=== PATIENT | male | born 1990 ===

== ENCOUNTER 2023-08-10 20:37 | Inpatient (IN) | payer SELFPAY ==
[~2023-08-10] VITALS: Ht 170.2 cm; Wt 94.0 kg
[2023-08-10] MEDS ORDERED: HYDROcodone-ACET 10/325MG TAB PO ONE (21:15)
[2023-08-10] MEDS ORDERED: ONDANSETRON ODT 4 MG TAB PO ONE (21:15)
[2023-08-10 21:40] LABS: Basophils # (auto) 0 10 ^3/uL (0-0.2); Basophils % (auto) 0.3 % (0.0-2.0); Eosinophils # (auto) 0.1 10 ^3/uL (0-0.8); Eosinophils % (auto) 0.9 % (0.0-7.0); Hematocrit 43.6 % (41.0-53.0); Lymphocytes # (auto) 2.4 10 ^3/uL (0.4-5.4); Lymphocytes % (auto) 18.7 % (10.0-50.0); Mean Corpuscular Hemoglobin 30.9 pg (28.0-32.0); Mean Corpuscular Hgb Conc. 34.4 g/dL (32.0-36.0); Mean Corpuscular Volume 89.8 fL (80.0-100.0); Monocytes # (auto) 1.1 10 ^3/uL (0-1.3); Monocytes % (auto) 8.4 % (0.0-12.0); Neutrophils # (auto) 9.2 10 ^3/uL (1.6-8.6); Neutrophils % (auto) 71.7 % (37.0-80.0); Red Blood Cells 4.85 10^6/uL (4.5-5.90); Red Cell Distribution Width 12.9 % (11.8-14.3); White Blood Cell 12.8 10^3/uL (4.4-10.8)
[2023-08-10 21:54] LABS: Alanine Aminotransferase 27 U/L (7-40); Albumin 4.9 g/dL (3.2-4.8); Alkaline Phosphatase 92 U/L (46-116); Anion Gap 8 (5-15); Aspartate Aminotransferase 10 U/L (13-40); BUN/Creatinine Ratio 9.2 (10.0-20.0); Bilirubin, Total 0.5 mg/dL (0.2-1.0); Blood Urea Nitrogen 11 mg/dL (9-23); Calcium 9.6 mg/dL (8.7-10.4); Carbon Dioxide 27 mmol/L (20-30); Chloride 102 mmol/L (98-107); Glucose 88 mg/dL (74-106); Lipase 52 U/L (12-53); Potassium 4.1 mmol/L (3.5-5.1); Sodium 137 mmol/L (136-145); Total Protein 8.1 g/dL (5.7-8.2)
[2023-08-10] MEDS ORDERED: ONDANSETRON HCL 4 MG/2 ML VIAL IV ONE (23:30)
[2023-08-10] MEDS ORDERED: HYDROmorphone HCL 2 MG/ML VL/or syr IV ONE (23:30)
[2023-08-10] MEDS ORDERED: PIPERACILLIN-TAZOB 3.375GM 100 ML IV ONE (23:30)
[2023-08-10] MEDS ORDERED: metroNIDAZOLE 500MG/100ML 100 ML IV ONE (23:30)
[2023-08-10] MEDS ORDERED: LACTATED RINGER'S 200 ML IV ONE (23:30)
[2023-08-11] MEDS ORDERED: fentaNYL CITRATE 100 MCG/2 ML VL IV ONE (00:45)
[2023-08-11] MEDS ORDERED: LACTATED RINGER'S 2,850 ML IV ONE ×2 (01:00)
[2023-08-11 01:10] VITALS: PULSE 88; RESP 22; O2SAT 96
[2023-08-11] MEDS ORDERED: HYDROcodone-ACET 5/325MG TAB PO PRN (02:00)
[2023-08-11] MEDS ORDERED: ONDANSETRON HCL 4 MG/2 ML VIAL IV PRN (02:00)
[2023-08-11] MEDS ORDERED: ACETAMINOPHEN 325 MG TAB PO PRN (02:00)
[2023-08-11] MEDS: D5W/SOD CHLO 0.9% 1,000 ML IV SCH ×2 (02:41→15:33)
[2023-08-11] MEDS: metroNIDAZOLE 500MG/100ML 100 ML IV SCH ×3 (06:00→22:20)
[2023-08-11] MEDS: PIPERACILLIN-TAZOB 3.375GM 100 ML IV SCH ×3 (06:00→22:20)
[2023-08-11 06:12] LABS: Alanine Aminotransferase 22 U/L (7-40); Albumin 4.2 g/dL (3.2-4.8); Alkaline Phosphatase 77 U/L (46-116); Anion Gap 4 (5-15); Aspartate Aminotransferase 15 U/L (13-40); BUN/Creatinine Ratio 7.4 (10.0-20.0); Bilirubin, Total 0.9 mg/dL (0.2-1.0); Blood Urea Nitrogen 9 mg/dL (9-23); Calcium 9.3 mg/dL (8.5-10.1); Carbon Dioxide 29 mmol/L (20-30); Chloride 105 mmol/L (98-107); Glucose 94 mg/dL (74-106); Potassium 4.5 mmol/L (3.5-5.1); Sodium 138 mmol/L (136-145); Total Protein 6.9 g/dL (5.7-8.2)
[2023-08-11 06:16] LABS: Basophils # (auto) 0 10 ^3/uL (0-0.2); Basophils % (auto) 0.3 % (0.0-2.0); Eosinophils # (auto) 0.1 10 ^3/uL (0-0.8); Eosinophils % (auto) 0.8 % (0.0-7.0); Hematocrit 41.3 % (41.0-53.0); Lymphocytes # (auto) 2.3 10 ^3/uL (0.4-5.4); Lymphocytes % (auto) 20.3 % (10.0-50.0); Mean Corpuscular Hemoglobin 30.3 pg (28.0-32.0); Mean Corpuscular Hgb Conc. 33.8 g/dL (32.0-36.0); Mean Corpuscular Volume 89.7 fL (80.0-100.0); Monocytes # (auto) 1.2 10 ^3/uL (0-1.3); Monocytes % (auto) 10.7 % (0.0-12.0); Neutrophils # (auto) 7.6 10 ^3/uL (1.6-8.6); Neutrophils % (auto) 67.9 % (37.0-80.0); Red Cell Distribution Width 12.7 % (11.8-14.3); White Blood Cell 11.2 10^3/uL (4.4-10.8)
[2023-08-11 09:09] VITALS: PULSE 72; RESP 18; O2SAT 97
[2023-08-11 14:40] VITALS: BP 163/69; PULSE 84; RESP 15; TEMP 98.5; O2SAT 97
[2023-08-11 14:53] VITALS: PULSE 82; RESP 18; O2SAT 90
[2023-08-11] MEDS: HYDROmorphone HCL 2 MG/ML VL/or syr IV PRN ×2 (15:58→20:39)
[2023-08-11 16:00] VITALS: BP 103/67; PULSE 83; PULSE 84; RESP 25; TEMP 98.9; O2SAT 98
[2023-08-11] MEDS ORDERED: NORPTMEDS CO (16:24)
[2023-08-11 20:00] VITALS: BP 93/56; PULSE 69; PULSE 74; RESP 18; RESP 20; TEMP 97.9; O2SAT 96; O2SAT 98
[2023-08-12] VITALS (12 sets, daily range): BP systolic 93–113; BP diastolic 43–70; PULSE 67–90; RESP 14–26; TEMP 97.6–98.4; O2SAT 92–95
[2023-08-12] MEDS: D5W/SOD CHLO 0.9% 1,000 ML IV SCH ×2 (03:43→18:05)
[2023-08-12 05:15] LABS: Basophils # (auto) 0.1 10 ^3/uL (0-0.2); Basophils % (auto) 0.5 % (0.0-2.0); Eosinophils # (auto) 0.1 10 ^3/uL (0-0.8); Eosinophils % (auto) 0.5 % (0.0-7.0); Hematocrit 42.9 % (41.0-53.0); Hemoglobin 14.4 g/dL (13.5-17.5); Lymphocytes % (auto) 7.9 % (10.0-50.0); Mean Corpuscular Hemoglobin 30.5 pg (28.0-32.0); Mean Corpuscular Hgb Conc. 33.6 g/dL (32.0-36.0); Mean Corpuscular Volume 90.7 fL (80.0-100.0); Monocytes % (auto) 7.6 % (0.0-12.0); Neutrophils # (auto) 10.7 10 ^3/uL (1.6-8.6); Neutrophils % (auto) 83.5 % (37.0-80.0); Red Blood Cells 4.73 10^6/uL (4.5-5.90); Red Cell Distribution Width 12.8 % (11.8-14.3); White Blood Cell 12.8 10^3/uL (4.4-10.8)
[2023-08-12 05:30] LABS: Alanine Aminotransferase 21 U/L (7-40); Albumin 4.4 g/dL (3.2-4.8); Alkaline Phosphatase 90 U/L (46-116); Anion Gap 7 (5-15); Aspartate Aminotransferase 12 U/L (13-40); BUN/Creatinine Ratio 6.7 (10.0-20.0); Blood Urea Nitrogen 8 mg/dL (9-23); Calcium 9.2 mg/dL (8.7-10.4); Carbon Dioxide 26 mmol/L (20-30); Chloride 102 mmol/L (98-107); Glucose 95 mg/dL (74-106); Potassium 3.9 mmol/L (3.5-5.1); Sodium 135 mmol/L (136-145)
[2023-08-12 05:31] LABS: Bilirubin, Total 0.9 mg/dL (0.2-1.0); Total Protein 7.3 g/dL (5.7-8.2)
[2023-08-12] MEDS: metroNIDAZOLE 500MG/100ML 100 ML IV SCH ×3 (05:51→22:18)
[2023-08-12] MEDS: PIPERACILLIN-TAZOB 3.375GM 100 ML IV SCH ×3 (05:51→22:18)
[2023-08-12] MEDS ORDERED: TPN PER PHARMACY 0 ML IV SCH (09:30)
[2023-08-12 09:32] LABS: Phosphorus 3.8 mg/dL (2.4-5.1)
[2023-08-12 10:59] LABS: INR 1.15 (0.9-1.15)
[2023-08-12] MEDS ORDERED: LIDOCAINE 1% (LOCAL ANESTH.) PF 5ml SDV ID ONE (16:15)
[2023-08-12] MEDS ORDERED: DEXTROSE (50%) 50ML SYRG IV SCH (20:00)
[2023-08-12] MEDS ORDERED: TPN PER PHARMACY IV NR ×9 (20:00)
[2023-08-12] MEDS: HYDROmorphone HCL 2 MG/ML VL/or syr IV PRN (21:12)
[2023-08-12] MEDS: SODIUM CHLOR 0.9% PF (SALINE LOCK) 10ML VIAL/SYR IV SCH (22:18)
[2023-08-13] VITALS (20 sets, daily range): BP systolic 95–124; BP diastolic 57–79; PULSE 57–102; RESP 13–27; TEMP 97.8–98.4; O2SAT 94–100
[2023-08-13] MEDS: ACCU-CHEK COMFORT CURVE STRIP VI SCH ×4 (00:16→17:24)
[2023-08-13] MEDS ORDERED: diphenhdrAMINE HCL 50 MG/1 ML VL IV ONE (02:45)
[2023-08-13] MEDS: metroNIDAZOLE 500MG/100ML 100 ML IV SCH ×3 (05:34→21:16)
[2023-08-13] MEDS: PIPERACILLIN-TAZOB 3.375GM 100 ML IV SCH ×3 (05:34→22:25)
[2023-08-13 05:44] LABS: BUN/Creatinine Ratio 8.1 (10.0-20.0); Blood Urea Nitrogen 9 mg/dL (9-23); Calcium 9.4 mg/dL (8.5-10.1); Chloride 103 mmol/L (98-107); Glucose 111 mg/dL (74-106); Potassium 3.7 mmol/L (3.5-5.1); Sodium 136 mmol/L (136-145)
[2023-08-13] MEDS: InsuLIN REG 1unit/0.01ml Soln (100units/ml) SC SCH ×4 (06:00→17:24)
[2023-08-13 06:54] LABS: Anion Gap 8 (5-15); Carbon Dioxide 25 mmol/L (20-30)
[2023-08-13] MEDS: D5W/SOD CHLO 0.9% 1,000 ML IV SCH (07:20)
[2023-08-13 07:30] LABS: Alanine Aminotransferase 17 U/L (7-40); Albumin 4.6 g/dL (3.2-4.8); Alkaline Phosphatase 85 U/L (46-116); Aspartate Aminotransferase 12 U/L (13-40); Magnesium 2.1 mg/dL (1.6-2.6); Phosphorus 3.1 mg/dL (2.4-5.1)
[2023-08-13 07:31] LABS: Bilirubin, Total 0.6 mg/dL (0.2-1.0); Total Protein 7.6 g/dL (5.7-8.2)
[2023-08-13] MEDS: SODIUM CHLOR 0.9% PF (SALINE LOCK) 10ML VIAL/SYR IV SCH ×2 (10:00→22:34)
[2023-08-13] MEDS: TPN PER PHARMACY IV NR ×8 (21:13)
[2023-08-13] MEDS: HYDROmorphone HCL 2 MG/ML VL/or syr IV PRN (21:15)
[2023-08-14] VITALS (10 sets, daily range): BP systolic 97–108; BP diastolic 58–67; PULSE 54–79; RESP 11–23; TEMP 97.4–98.3; O2SAT 93–98
[2023-08-14 05:07] LABS: Basophils # (auto) 0.1 10 ^3/uL (0-0.2); Basophils % (auto) 0.7 % (0.0-2.0); Eosinophils # (auto) 0.1 10 ^3/uL (0-0.8); Eosinophils % (auto) 1.5 % (0.0-7.0); Hematocrit 43.6 % (41.0-53.0); Hemoglobin 14.8 g/dL (13.5-17.5); Lymphocytes # (auto) 1.7 10 ^3/uL (0.4-5.4); Lymphocytes % (auto) 21.2 % (10.0-50.0); Mean Corpuscular Hemoglobin 30.5 pg (28.0-32.0); Mean Corpuscular Volume 89.9 fL (80.0-100.0); Monocytes # (auto) 0.6 10 ^3/uL (0-1.3); Monocytes % (auto) 7.7 % (0.0-12.0); Neutrophils # (auto) 5.5 10 ^3/uL (1.6-8.6); Neutrophils % (auto) 68.9 % (37.0-80.0); Nucleated Red Blood Cells % 0.1 %; Red Blood Cells 4.86 10^6/uL (4.5-5.90); Red Cell Distribution Width 12.9 % (11.8-14.3)
[2023-08-14 05:24] LABS: Alanine Aminotransferase 16 U/L (7-40); Albumin 4.5 g/dL (3.2-4.8); Alkaline Phosphatase 75 U/L (46-116); Anion Gap 6 (5-15); Aspartate Aminotransferase 11 U/L (13-40); BUN/Creatinine Ratio 8.5 (10.0-20.0); Blood Urea Nitrogen 10 mg/dL (9-23); Calcium 9.4 mg/dL (8.7-10.4); Carbon Dioxide 27 mmol/L (20-30); Chloride 105 mmol/L (98-107); Glucose 98 mg/dL (74-106); Magnesium 2.1 mg/dL (1.6-2.6); Potassium 4.5 mmol/L (3.5-5.1); Sodium 138 mmol/L (136-145)
[2023-08-14 05:25] LABS: Bilirubin, Total 0.4 mg/dL (0.2-1.0); Phosphorus 3.7 mg/dL (2.4-5.1); Total Protein 7.6 g/dL (5.7-8.2)
[2023-08-14] MEDS: InsuLIN REG 1unit/0.01ml Soln (100units/ml) SC SCH ×4 (06:00→18:00)
[2023-08-14] MEDS: ACCU-CHEK COMFORT CURVE STRIP VI SCH ×4 (06:00→18:00)
[2023-08-14] MEDS: metroNIDAZOLE 500MG/100ML 100 ML IV SCH ×3 (08:02→22:15)
[2023-08-14] MEDS: PIPERACILLIN-TAZOB 3.375GM 100 ML IV SCH ×3 (08:02→22:15)
[2023-08-14] MEDS: D5W/SOD CHLO 0.9% 1,000 ML IV SCH ×2 (10:48→23:20)
[2023-08-14] MEDS: SODIUM CHLOR 0.9% PF (SALINE LOCK) 10ML VIAL/SYR IV SCH ×2 (10:49→22:15)
[2023-08-14] MEDS: HYDROmorphone HCL 2 MG/ML VL/or syr IV PRN ×2 (11:50→18:06)
[2023-08-14] MEDS: TPN PER PHARMACY IV NR ×16 (20:07→20:08)
[2023-08-15] VITALS (9 sets, daily range): BP systolic 97–130; BP diastolic 51–68; PULSE 57–76; RESP 16–22; TEMP 97.3–98.2; O2SAT 94–100
[2023-08-15] MEDS: ACCU-CHEK COMFORT CURVE STRIP VI SCH ×4 (00:49→18:18)
[2023-08-15] MEDS: metroNIDAZOLE 500MG/100ML 100 ML IV SCH (05:07)
[2023-08-15] MEDS: InsuLIN REG 1unit/0.01ml Soln (100units/ml) SC SCH ×4 (05:17→18:00)
[2023-08-15] MEDS: PIPERACILLIN-TAZOB 3.375GM 100 ML IV SCH ×3 (06:11→21:20)
[2023-08-15 06:38] LABS: Alanine Aminotransferase 15 U/L (7-40); Albumin 4.5 g/dL (3.2-4.8); Alkaline Phosphatase 68 U/L (46-116); Anion Gap 4 (5-15); Aspartate Aminotransferase 13 U/L (13-40); BUN/Creatinine Ratio 9.1 (10.0-20.0); Blood Urea Nitrogen 11 mg/dL (9-23); Calcium 9.3 mg/dL (8.7-10.4); Carbon Dioxide 29 mmol/L (20-30); Chloride 106 mmol/L (98-107); Glucose 88 mg/dL (74-106); Magnesium 1.9 mg/dL (1.6-2.6); Potassium 4.5 mmol/L (3.5-5.1); Sodium 139 mmol/L (136-145)
[2023-08-15 06:39] LABS: Bilirubin, Total 0.3 mg/dL (0.2-1.0); Phosphorus 4.2 mg/dL (2.4-5.1); Total Protein 7.5 g/dL (5.7-8.2)
[2023-08-15 07:02] LABS: Basophils # (auto) 0 10 ^3/uL (0-0.2); Basophils % (auto) 0.6 % (0.0-2.0); Eosinophils # (auto) 0.2 10 ^3/uL (0-0.8); Eosinophils % (auto) 2.1 % (0.0-7.0); Hematocrit 43.9 % (41.0-53.0); Hemoglobin 14.9 g/dL (13.5-17.5); Lymphocytes # (auto) 2.1 10 ^3/uL (0.4-5.4); Mean Corpuscular Hemoglobin 30.7 pg (28.0-32.0); Mean Corpuscular Hgb Conc. 34.1 g/dL (32.0-36.0); Mean Corpuscular Volume 90.3 fL (80.0-100.0); Monocytes # (auto) 0.7 10 ^3/uL (0-1.3); Monocytes % (auto) 8.2 % (0.0-12.0); Neutrophils # (auto) 5.8 10 ^3/uL (1.6-8.6); Neutrophils % (auto) 65.1 % (37.0-80.0); Nucleated Red Blood Cells % 0.3 %; Red Blood Cells 4.86 10^6/uL (4.5-5.90); Red Cell Distribution Width 12.7 % (11.8-14.3); White Blood Cell 8.8 10^3/uL (4.4-10.8)
[2023-08-15] MEDS ORDERED: OMNIPAQUE 12mg/ml 500ml ORAL SOLUTION PO ONE (08:02)
[2023-08-15] MEDS ORDERED: IOHEXOL 300 MG/ML 100ML BOTTLE IJ ONE (11:11)
[2023-08-15] MEDS: D5W/SOD CHLO 0.9% 1,000 ML IV SCH ×3 (12:40→17:58)
[2023-08-15] MEDS: SODIUM CHLOR 0.9% PF (SALINE LOCK) 10ML VIAL/SYR IV SCH ×2 (14:23→21:21)
[2023-08-15] MEDS: TPN PER PHARMACY IV NR ×8 (19:55)
[2023-08-15] MEDS ORDERED: TPN PER PHARMACY IV NR ×8 (20:00)
[2023-08-16] VITALS (7 sets, daily range): BP systolic 100–123; BP diastolic 7–86; PULSE 6–105; RESP 18–22; TEMP 97.6–98.1; O2SAT 96–98
[2023-08-16] MEDS: D5W/SOD CHLO 0.9% 1,000 ML IV SCH ×2 (02:00→14:19)
[2023-08-16] MEDS: PIPERACILLIN-TAZOB 3.375GM 100 ML IV SCH ×2 (05:22→14:19)
[2023-08-16] MEDS: InsuLIN REG 1unit/0.01ml Soln (100units/ml) SC SCH ×5 (05:22→23:19)
[2023-08-16] MEDS: ACCU-CHEK COMFORT CURVE STRIP VI SCH ×5 (05:22→23:19)
[2023-08-16 06:32] LABS: Basophils # (auto) 0 10 ^3/uL (0-0.2); Basophils % (auto) 0.5 % (0.0-2.0); Eosinophils # (auto) 0.3 10 ^3/uL (0-0.8); Eosinophils % (auto) 2.8 % (0.0-7.0); Hematocrit 43.8 % (41.0-53.0); Lymphocytes # (auto) 2.8 10 ^3/uL (0.4-5.4); Lymphocytes % (auto) 27.3 % (10.0-50.0); Mean Corpuscular Hemoglobin 30.7 pg (28.0-32.0); Mean Corpuscular Hgb Conc. 34.2 g/dL (32.0-36.0); Mean Corpuscular Volume 89.9 fL (80.0-100.0); Monocytes # (auto) 0.7 10 ^3/uL (0-1.3); Monocytes % (auto) 6.9 % (0.0-12.0); Neutrophils # (auto) 6.5 10 ^3/uL (1.6-8.6); Neutrophils % (auto) 62.5 % (37.0-80.0); Nucleated Red Blood Cells % 0.1 %; Red Blood Cells 4.87 10^6/uL (4.5-5.90); White Blood Cell 10.3 10^3/uL (4.4-10.8)
[2023-08-16 06:46] LABS: Alanine Aminotransferase 18 U/L (7-40); Albumin 4.4 g/dL (3.2-4.8); Alkaline Phosphatase 65 U/L (46-116); Anion Gap 5 (5-15); Aspartate Aminotransferase 17 U/L (13-40); BUN/Creatinine Ratio 7.5 (10.0-20.0); Blood Urea Nitrogen 9 mg/dL (9-23); Calcium 9.1 mg/dL (8.7-10.4); Carbon Dioxide 26 mmol/L (20-30); Chloride 106 mmol/L (98-107); Glucose 83 mg/dL (74-106); Sodium 137 mmol/L (136-145)
[2023-08-16 06:47] LABS: Phosphorus 3.6 mg/dL (2.4-5.1)
[2023-08-16 06:48] LABS: Bilirubin, Total 0.3 mg/dL (0.2-1.0); Total Protein 7.3 g/dL (5.7-8.2)
[2023-08-16] MEDS: SODIUM CHLOR 0.9% PF (SALINE LOCK) 10ML VIAL/SYR IV SCH ×2 (10:40→23:18)
[2023-08-16] MEDS: CEPHALEXIN 250 MG CAP PO SCH ×2 (17:09→23:19)
[2023-08-16] MEDS ORDERED: TPN PER PHARMACY IV NR ×10 (20:00)
[2023-08-16] MEDS: metroNIDAZOLE 500 MG TAB PO SCH (21:58)
[2023-08-17 05:00] VITALS: BP 104/61; PULSE 69; RESP 18; TEMP 97.9; O2SAT 99
[2023-08-17] MEDS: D5W/SOD CHLO 0.9% 1,000 ML IV SCH (05:45)
[2023-08-17] MEDS: ACCU-CHEK COMFORT CURVE STRIP VI SCH ×2 (05:46→13:10)
[2023-08-17] MEDS: InsuLIN REG 1unit/0.01ml Soln (100units/ml) SC SCH ×2 (05:46→12:00)
[2023-08-17 06:30] LABS: Calcium 9.2 mg/dL (8.7-10.4); Chloride 106 mmol/L (98-107); Sodium 138 mmol/L (136-145)
[2023-08-17 06:31] LABS: Anion Gap 8 (5-15); Carbon Dioxide 24 mmol/L (20-30)
[2023-08-17 06:36] LABS: BUN/Creatinine Ratio 6.6 (10.0-20.0); Blood Urea Nitrogen 8 mg/dL (9-23); Glucose 102 mg/dL (74-106)
[2023-08-17 06:55] LABS: Basophils # (auto) 0 10 ^3/uL (0-0.2); Basophils % (auto) 0.5 % (0.0-2.0); Eosinophils # (auto) 0.3 10 ^3/uL (0-0.8); Eosinophils % (auto) 2.6 % (0.0-7.0); Hemoglobin 15.1 g/dL (13.5-17.5); Lymphocytes # (auto) 2.6 10 ^3/uL (0.4-5.4); Lymphocytes % (auto) 24.2 % (10.0-50.0); Mean Corpuscular Hemoglobin 29.9 pg (28.0-32.0); Mean Corpuscular Hgb Conc. 33.5 g/dL (32.0-36.0); Mean Corpuscular Volume 89.2 fL (80.0-100.0); Monocytes # (auto) 0.7 10 ^3/uL (0-1.3); Monocytes % (auto) 6.7 % (0.0-12.0); Neutrophils # (auto) 7.1 10 ^3/uL (1.6-8.6); Nucleated Red Blood Cells % 0.2 %; Red Blood Cells 5.04 10^6/uL (4.5-5.90); Red Cell Distribution Width 12.9 % (11.8-14.3); White Blood Cell 10.8 10^3/uL (4.4-10.8)
[2023-08-17] MEDS: metroNIDAZOLE 500 MG TAB PO SCH (07:08)
[2023-08-17] MEDS: CEPHALEXIN 250 MG CAP PO SCH ×2 (07:08→13:09)
[2023-08-17 08:00] VITALS: BP 100/7; PULSE 6; PULSE 61; RESP 18; RESP 20; TEMP 98.1; O2SAT 98
[2023-08-17 09:00] VITALS: BP 99/65; PULSE 61; RESP 20; TEMP 97.9; O2SAT 98
[2023-08-17] MEDS: SODIUM CHLOR 0.9% PF (SALINE LOCK) 10ML VIAL/SYR IV SCH (10:35)
[2023-08-17] MEDS ORDERED: CIPR-173 PO (11:35)
[2023-08-17] MEDS ORDERED: MET500T PO (11:35)
[2023-08-17 13:00] VITALS: BP 121/79; PULSE 82; RESP 20; TEMP 97.9; O2SAT 96
[2023-08-17 13:14] VITALS: BP 129/69; PULSE 61; RESP 18; TEMP 36.6; O2SAT 95
== END 2023-08-17 14:55 | disposition home or self-care (01) | DRG 392 ==
LOC: ER 20:37 → EDBD 20:37 → OVERFLOW 08-11 01:59 → DOU IN ICU 08-11 14:48 → TELE-CENTR 08-15 02:53
PROVIDERS: ADMIT Nurse Practitioner Family; ATTEND Internal Medicine
PROC: 02HV33Z Insertion of Infusion Device into Superior Vena Cava, Percutaneous Approach (ICD-10-PCS; principal; 2023-08-12)
PROC: B548ZZA Ultrasonography of Superior Vena Cava, Guidance (ICD-10-PCS; 2023-08-12)
DX: K57.20 Diverticulitis of large intestine with perforation and abscess without bleeding (principal); D72.829 Elevated white blood cell count, unspecified
CPT/HCPCS: 36415; 36569; 71045; 74176; 74177; 80048; 80053; 82962; 83605; 83690; 83735; 84100; 84478; 85025; 85610; 87040; 87081; 96365; G0378; J2405; J2543; J3490; J7042